=== PATIENT | male | born 1985 | race Caucasian/White ===

== ENCOUNTER 2018-10-30 17:30 | Inpatient (IN) ==
[2018-10-30] MEDS ORDERED: PANTOPRAZOLE 40 MG VIAL IV STA (17:58)
[2018-10-30] MEDS ORDERED: METOCLOPRAMIDE 10 MG/2 ML VIAL IV STA (17:58)
[2018-10-30] MEDS ORDERED: INSULIN REGULAR 100 UNIT/ML IV STA (17:58)
[2018-10-30] MEDS ORDERED: LOPERAMIDE 2 MG CAPSULE PO STA (17:58)
[2018-10-30] MEDS ORDERED: SODIUM CHLORIDE 0.9% 2,000 ML IV STA (17:58)
[2018-10-30] MEDS ORDERED: ONDANSETRON ODT 4 MG TABLET PO STA (17:58)
[2018-10-30] MEDS ORDERED: LEVOFLOXACIN INJ 750 MG in PREMIX 1 EACH IV STA (17:58)
[2018-10-30 18:22] LABS: Basophils % 0.1 % (0.0-0.8); Hemoglobin 12.7 GM/DL (14.0-18.0); Immature Granulocytes % 1.2 %; Immature Granulocytes Absolute 0.18 #; Lymphocytes # 1.3 10*3/uL (1.4-4.0); Lymphocytes % 8.2 % (21.2-54.2); Mean Corpuscular HGB Conc 33.4 GM/DL (32-36); Mean Corpuscular Hemoglobin 30 PG (27-34); Mean Corpuscular Volume 89.4 FL (87-102); Monocytes # 0.8 10*3/uL (0.11-0.8); Monocytes % 5.5 % (1.7-12.7); Neutrophils # 13.1 10*3/uL (1.4-7.4); Platelet Count 269 T/CUMM (130-400); Red Blood Count 4.25 MC/CUMM (3.8-5.5); Red Cell Distribution Width 12.8 % (9.3-17.3); White Blood Count 15.4 T/CUMM (4-12)
[2018-10-30 18:41] LABS: Lactic Acid 1.4 MMOL/L (0.4-2.0)
[2018-10-30 18:42] LABS: Albumin 2.5 G/DL (3.4-5.0); Calcium 9.2 MG/DL (8.5-10.1); Osmolality,Calculated 306.4 MOS/KG (273-304); Potassium 4.5 MMOL/L (3.5-5.1); Total Protein 6.7 G/DL (6.4-8.3)
[2018-10-30] MEDS ORDERED: SODIUM CHLORIDE 0.9% 1,000 ML IV ONE (19:43)
[2018-10-30] MEDS ORDERED: ONDANSETRON 4 MG/2 ML VIAL IV PRN (19:43)
[2018-10-30] MEDS ORDERED: SODIUM PHOSPHATE INJ 15.9 MMOL in SODIUM CHLORIDE 0.9% 250 ML IV PRN (19:43)
[2018-10-30] MEDS ORDERED: INSULIN REGULAR 100 UNIT/ML IV ONE (19:43)
[2018-10-30] MEDS ORDERED: POTASSIUM CHLORIDE RIDER 10 MEQ in PREMIX 1 EACH IV PRN (19:43)
[2018-10-30] MEDS ORDERED: SODIUM BICARB INJ 100 MEQ in STERILE WATER INJ 400 ML IV PRN (19:43)
[2018-10-30] MEDS ORDERED: MAGNESIUM SULF RIDER 2 GM in PREMIX 1 EACH IV PRN (19:43)
[2018-10-30] MEDS ORDERED: DEXTROSE 50% 25 GM/50 ML VIAL IV PRN ×2 (19:43)
[2018-10-30] MEDS ORDERED: MAGNESIUM SULF RIDER 4 GM in PREMIX 1 EACH IV PRN (19:43)
[2018-10-30] MEDS ORDERED: INSULIN REGULAR DRIP 100 ML IV SCH (20:00)
[2018-10-30 20:44] LABS: Calcium 6.4 MG/DL (8.5-10.1); Osmolality,Calculated 307.5 MOS/KG (273-304); Potassium 3.5 MMOL/L (3.5-5.1)
[2018-10-30 21:37] LABS: ABG Base Excess -7.8 MMOL/L (-2.5-2.5); ABG HCO3 18.1 MMOL/L (20-26); ABG Oxygen Saturation 98.3 % (95-100); ABG PH 7.362 (7.35-7.45); ABG TCO2 14.9 MMOL/L (23-27); Allen Test Positive; Pt O2 Delivery Device Room Air
[2018-10-30] MEDS: ENOXAPARIN 40 MG/0.4 ML SYRINGE SUBCUT SCH (21:57)
[2018-10-30] MEDS: SODIUM CHLORIDE 0.9% 1,000 ML IV SCH (22:33)
[2018-10-31 00:01] LABS: Apearance,Urine CLEAR (Clear); Bilirubin,Urine Negative (Negative); Blood, Urine Small mg/dL (Negative); Glucose,Urine (UA) >=500 mg/dL (Negative); Ketones,Urine 20 mg/dL (Negative); Mucus,Urine Occasional /LPF (Occasional); Nitrite,Urine Negative (Negative); Protein,Urine 100 MG/DL; RBC,Urine <1 /HPF (0-4); Squamous Epithelial Cell,Urine Occasional /HPF (0-10); Urine Color Straw (Yellow); Urine Specific Gravity 1.016 (1.001-1.035); Urine Urobilinogen < 2.0 EU/DL (0.2-1.0); WBC,Urine <1 /HPF (0-6)
[2018-10-31 00:07] LABS: Barbiturates Screen,Urine Negative (Negative); Benzodiazepines Screen,Urine Negative (Negative); Cannabinoid Screen,Urine Negative (Negative); Opiate Screen,Urine Negative (Negative); Phencyclidine Screen,Urine Negative (Negative)
[2018-10-31 00:26] LABS: Calcium 7.5 MG/DL (8.5-10.1); Osmolality,Calculated 303.1 MOS/KG (273-304); Potassium 4.2 MMOL/L (3.5-5.1)
[2018-10-31] MEDS: SODIUM CHLORIDE 0.9% 1,000 ML IV SCH (00:34)
[2018-10-31] MEDS ORDERED: SODIUM CHLORIDE 0.9% 1,000 ML IV SCH (00:43)
[2018-10-31 04:17] LABS: Basophils % 0.1 % (0.0-0.8); Eosinophils % 0.1 % (0.00-10.9); Hematocrit 28.7 VOL% (42.0-52.0); Hemoglobin 9.6 GM/DL (14.0-18.0); Immature Granulocytes % 0.7 %; Immature Granulocytes Absolute 0.07 #; Lymphocytes # 1.5 10*3/uL (1.4-4.0); Lymphocytes % 15.4 % (21.2-54.2); Mean Corpuscular HGB Conc 33.4 GM/DL (32-36); Mean Corpuscular Hemoglobin 29 PG (27-34); Mean Corpuscular Volume 87.5 FL (87-102); Mean Platelet Volume 11.9 FL (9.6-12.0); Monocytes # 0.7 10*3/uL (0.11-0.8); Monocytes % 7.5 % (1.7-12.7); Neutrophils # 7.4 10*3/uL (1.4-7.4); Neutrophils % 76.2 % (38.7-73.9); Platelet Count 189 T/CUMM (130-400); Red Blood Count 3.28 MC/CUMM (3.8-5.5); Red Cell Distribution Width 12.8 % (9.3-17.3); White Blood Count 9.8 T/CUMM (4-12)
[2018-10-31 04:34] LABS: Calcium 7.3 MG/DL (8.5-10.1); Osmolality,Calculated 302.4 MOS/KG (273-304); Potassium 3.9 MMOL/L (3.5-5.1)
[2018-10-31] MEDS: DEXTROSE 5% NACL 0.9% 1,000 ML IV SCH ×2 (04:35→09:47)
[2018-10-31 04:50] LABS: ABG Oxygen Saturation 96.7 % (95-100); ABG PCO2 37.5 MM HG (35-48); ABG PH 7.442 (7.35-7.45); ABG PO2 93.7 MM HG (80-95); ABG TCO2 26.2 MMOL/L (23-27); Allen Test Positive; Pt O2 Delivery Device Room Air
[2018-10-31] MEDS: SODIUM CHLOR 0.45% KCL 20 MEQ 20 MEQ/1,000 ML BAG IV SCH ×2 (06:35→10:39)
[2018-10-31] MEDS ORDERED: GLUCAGON 1 MG VIAL IM PRN (08:45)
[2018-10-31] MEDS ORDERED: DEXTROSE 50% 25 GM/50 ML VIAL IV PRN (08:45)
[2018-10-31 09:02] LABS: Calcium 7.5 MG/DL (8.5-10.1); Osmolality,Calculated 297.4 MOS/KG (273-304); Potassium 3.8 MMOL/L (3.5-5.1)
[2018-10-31] MEDS ORDERED: POTASSIUM PHOSPHATE 30 MMOL in SODIUM CHLORIDE 0.9% 250 ML IV ONE (10:00)
[2018-10-31] MEDS: INSULIN GLARGINE 100 UNIT/ML SUBCUT SCH (10:16)
[2018-10-31] MEDS: METOPROLOL TARTRATE 25 MG TABLET PO SCH ×2 (10:17→21:58)
[2018-10-31] MEDS: FAMOTIDINE 20 MG TABLET PO SCH ×2 (10:35→21:57)
[2018-10-31] MEDS: INSULIN REGULAR 100 UNIT/ML SUBCUT SCH ×3 (13:30→21:58)
[2018-10-31] MEDS: SODIUM CHLORIDE 0.45% 1,000 ML IV SCH (13:33)
[2018-10-31 14:32] LABS: Osmolality,Calculated 287.5 MOS/KG (273-304); Potassium 4.1 MMOL/L (3.5-5.1)
[2018-10-31] MEDS: GABAPENTIN 300 MG CAPSULE PO SCH ×2 (16:17→21:57)
[2018-10-31 18:46] LABS: Calcium 7.2 MG/DL (8.5-10.1); Osmolality,Calculated 286.5 MOS/KG (273-304); Potassium 3.8 MMOL/L (3.5-5.1)
[2018-10-31] MEDS: ENOXAPARIN 40 MG/0.4 ML SYRINGE SUBCUT SCH (21:57)
[2018-11-01] MEDS: SODIUM CHLORIDE 0.45% 1,000 ML IV SCH ×3 (02:15→11:34)
[2018-11-01 07:19] LABS: Basophils % 0.2 % (0.0-0.8); Eosinophils % 0.6 % (0.00-10.9); Hematocrit 28.1 VOL% (42.0-52.0); Hemoglobin 9.3 GM/DL (14.0-18.0); Immature Granulocytes % 0.3 %; Immature Granulocytes Absolute 0.02 #; Lymphocytes # 1.4 10*3/uL (1.4-4.0); Lymphocytes % 21.1 % (21.2-54.2); Mean Corpuscular HGB Conc 33.1 GM/DL (32-36); Mean Corpuscular Hemoglobin 30 PG (27-34); Mean Corpuscular Volume 90.1 FL (87-102); Mean Platelet Volume 11.3 FL (9.6-12.0); Monocytes # 0.6 10*3/uL (0.11-0.8); Monocytes % 8.6 % (1.7-12.7); Neutrophils # 4.6 10*3/uL (1.4-7.4); Neutrophils % 69.2 % (38.7-73.9); Platelet Count 129 T/CUMM (130-400); Red Blood Count 3.12 MC/CUMM (3.8-5.5); Red Cell Distribution Width 13.2 % (9.3-17.3); White Blood Count 6.7 T/CUMM (4-12)
[2018-11-01] MEDS: INSULIN REGULAR 100 UNIT/ML SUBCUT SCH ×2 (08:28→11:43)
[2018-11-01] MEDS ORDERED: LEVOFLOXACIN INJ 750 MG in PREMIX 1 EACH IV SCH (09:00)
[2018-11-01] MEDS: INSULIN GLARGINE 100 UNIT/ML SUBCUT SCH (09:46)
[2018-11-01] MEDS: GABAPENTIN 300 MG CAPSULE PO SCH (09:46)
[2018-11-01] MEDS: METOPROLOL TARTRATE 25 MG TABLET PO SCH (09:46)
[2018-11-01] MEDS: FAMOTIDINE 20 MG TABLET PO SCH (09:46)
[2018-11-01 11:43] VITALS: BP 123/82
== END 2018-11-01 14:20 | disposition home or self-care (01) | DRG 638 ==
LOC: N.ED 17:30 → SUATTDRO 19:43 → N.CC 19:43 → N.5E 10-31 15:55
PROVIDERS: ADMIT Internal Medicine; ATTEND Internal Medicine Cardiovascular Disease

== ENCOUNTER 2022-01-13 08:04 | Observation (INO) ==
[2022-01-13 09:31] LABS: Basophils % 0.5 % (0.0-0.8); Eosinophils # 0.1 10*3/uL (0.0-0.87); Eosinophils % 1.5 % (0.00-10.9); Hematocrit 32.3 VOL% (42.0-52.0); Hemoglobin 10.3 GM/DL (14.0-18.0); Immature Granulocytes % 0.5 %; Immature Granulocytes Absolute 0.03 #; Lymphocytes # 0.9 10*3/uL (1.4-4.0); Lymphocytes % 13.7 % (21.2-54.2); Mean Corpuscular HGB Conc 31.9 GM/DL (32-36); Mean Corpuscular Volume 100.3 FL (87-102); Mean Platelet Volume 10.1 FL (9.6-12.0); Monocytes % 7.5 % (1.7-12.7); Neutrophils % 76.3 % (38.7-73.9); Platelet Count 173 T/CUMM (130-400); Red Blood Count 3.22 MC/CUMM (3.8-5.5); Red Cell Distribution Width 13.9 % (9.3-17.3); White Blood Count 6.5 T/CUMM (4-12)
[2022-01-13 09:50] LABS: Osmolality,Calculated 282.4 MOS/KG (273-304)
[2022-01-13 09:55] LABS: Potassium 6.3 MMOL/L (3.5-5.1)
[2022-01-13] MEDS ORDERED: SODIUM POLYSTYRENE SULFATE 15 GM/60 ML BOTTLE PO STA (10:18)
[2022-01-13] MEDS ORDERED: levETIRAcetam 500 MG TABLET PO STA (10:22)
[2022-01-13] MEDS ORDERED: cefTRIAXone 1,000 MG in SODIUM CHLORIDE 0.9% 100 ML IV ONE (11:39)
[2022-01-13] MEDS ORDERED: LIDOCAINE 2% 5 ML VIAL ONE (13:58)
[2022-01-13] MEDS ORDERED: ONDANSETRON 4 MG/2 ML VIAL ONE (13:58)
[2022-01-13] MEDS ORDERED: propofoL 200 MG/20 ML VIAL IV ONE (13:58)
[2022-01-13] MEDS ORDERED: LIDOCAINE 1%/EPI INJ 20 ML VIAL ONE (14:45)
[2022-01-13] MEDS ORDERED: HEPARIN 5,000 UNIT/1 ML VIAL ONE (14:45)
[2022-01-13] MEDS ORDERED: BUPIVACAINE MPF 0.25% 30 ML VIAL ONE (14:45)
[2022-01-13] MEDS ORDERED: SEVOFLURANE 1 UNIT/15 MINUTE INH ONE (15:47)
[2022-01-13] MEDS: levETIRAcetam 250 MG TABLET PO SCH (23:06)
[2022-01-13] MEDS: GABAPENTIN 600 MG TABLET PO SCH (23:06)
[2022-01-14] MEDS: GABAPENTIN 600 MG TABLET PO SCH (09:11)
[2022-01-14] MEDS: levETIRAcetam 250 MG TABLET PO SCH (09:11)
[2022-01-14 12:38] VITALS: BP 160/93
== END 2022-01-14 14:15 | disposition home or self-care (01) ==
LOC: EDUNIT# → EDBD → N.ED 08:04 → N.EDINP 08:04 → N.3E 11:14
PROVIDERS: ADMIT Surgery; ATTEND Surgery

== ENCOUNTER 2022-02-17 06:47 | Observation (INO) ==
[2022-02-17 07:43] LABS: Basophils % 0.9 % (0.0-0.8); Eosinophils # 0.2 10*3/uL (0.0-0.87); Eosinophils % 3.4 % (0.00-10.9); Hemoglobin 12.6 GM/DL (14.0-18.0); Immature Granulocytes % 0.5 %; Immature Granulocytes Absolute 0.02 #; Lymphocytes # 1.2 10*3/uL (1.4-4.0); Lymphocytes % 26.4 % (21.2-54.2); Mean Corpuscular HGB Conc 32.3 GM/DL (32-36); Mean Corpuscular Volume 101.6 FL (87-102); Mean Platelet Volume 11.3 FL (9.6-12.0); Monocytes # 0.5 10*3/uL (0.11-0.8); Monocytes % 11.1 % (1.7-12.7); Neutrophils % 57.7 % (38.7-73.9); Platelet Count 127 T/CUMM (130-400); Red Blood Count 3.84 MC/CUMM (3.8-5.5); Red Cell Distribution Width 16.3 % (9.3-17.3); White Blood Count 4.4 T/CUMM (4-12)
[2022-02-17 07:54] LABS: Calcium 8.6 MG/DL (8.5-10.1); Osmolality,Calculated 292.7 MOS/KG (273-304); Potassium 4.4 MMOL/L (3.5-5.1)
[2022-02-17] MEDS ORDERED: ONDANSETRON 4 MG/2 ML VIAL IV PRN (09:48)
[2022-02-17] MEDS ORDERED: DEXTROSE 10% 250 ML BAG IV PRN (09:48)
[2022-02-17] MEDS ORDERED: DOCUSATE SODIUM 100 MG CAPSULE PO PRN (09:48)
[2022-02-17] MEDS ORDERED: GLUCAGON 1 MG VIAL IM PRN (09:48)
[2022-02-17] MEDS ORDERED: ACETAMINOPHEN 325 MG TABLET PO PRN (09:48)
[2022-02-17] MEDS ORDERED: hydrALAZINE 20 MG/1 ML VIAL IV PRN (10:24)
[2022-02-17] MEDS ORDERED: METOCLOPRAMIDE 10 MG/2 ML VIAL ONE (11:52)
[2022-02-17] MEDS ORDERED: propofoL 200 MG/20 ML VIAL IV ONE (12:05)
[2022-02-17] MEDS ORDERED: DEXMEDETOMIDINE 200 MCG/2 ML VIAL ONE (12:05)
[2022-02-17] MEDS ORDERED: HEPARIN 5,000 UNIT/1 ML VIAL ONE (12:10)
[2022-02-17] MEDS ORDERED: BUPIVACAINE MPF 0.25% 30 ML VIAL ONE (12:10)
[2022-02-17] MEDS ORDERED: LIDOCAINE 1%/EPI INJ 20 ML VIAL ONE (12:10)
[2022-02-17] MEDS ORDERED: hydrALAZINE 20 MG/1 ML VIAL ONE (12:22)
[2022-02-17] MEDS ORDERED: SODIUM CHLORIDE 0.9% 250 ML IV ONE (12:25)
[2022-02-17] MEDS: INSULIN REGULAR 100 UNIT/ML SUBCUT SCH ×4 (14:34→20:30)
[2022-02-17] MEDS: GABAPENTIN 300 MG CAPSULE PO SCH ×2 (16:08→20:20)
[2022-02-17] MEDS ORDERED: HEPARIN 10,000 UNIT/10 ML VIAL IV ONE (16:30)
[2022-02-17] MEDS: levETIRAcetam 250 MG TABLET PO SCH (20:20)
[2022-02-17] MEDS ORDERED: INSULIN GLARGINE 100 UNIT/ML SUBCUT SCH (21:00)
[2022-02-17] MEDS ORDERED: LABETALOL 20 MG/4 ML SYRINGE IV ONE (22:07)
[2022-02-18 03:56] LABS: Basophils % 0.8 % (0.0-0.8); Eosinophils # 0.1 10*3/uL (0.0-0.87); Eosinophils % 2.2 % (0.00-10.9); Hemoglobin 12.3 GM/DL (14.0-18.0); Immature Granulocytes % 0.4 %; Immature Granulocytes Absolute 0.02 #; Lymphocytes # 1.2 10*3/uL (1.4-4.0); Lymphocytes % 23.3 % (21.2-54.2); Mean Corpuscular HGB Conc 33.2 GM/DL (32-36); Mean Corpuscular Volume 99.7 FL (87-102); Mean Platelet Volume 12.1 FL (9.6-12.0); Monocytes # 0.5 10*3/uL (0.11-0.8); Neutrophils % 63.3 % (38.7-73.9); Platelet Count 121 T/CUMM (130-400); Red Blood Count 3.71 MC/CUMM (3.8-5.5); Red Cell Distribution Width 15.9 % (9.3-17.3); White Blood Count 5.1 T/CUMM (4-12)
[2022-02-18 04:16] LABS: Albumin 3.5 G/DL (3.4-5.0); Bilirubin,Total 0.6 MG/DL (0.20-1.00); Calcium 8.2 MG/DL (8.5-10.1); Osmolality,Calculated 278.8 MOS/KG (273-304); Potassium 4.1 MMOL/L (3.5-5.1); Total Protein 6.9 G/DL (6.4-8.2)
[2022-02-18] MEDS: INSULIN REGULAR 100 UNIT/ML SUBCUT SCH ×2 (07:11→11:26)
[2022-02-18] MEDS ORDERED: PANTOPRAZOLE 40 MG TABLET PO SCH (09:00)
[2022-02-18] MEDS ORDERED: ASPIRIN EC 81 MG TABLET PO SCH (09:00)
[2022-02-18] MEDS: levETIRAcetam 250 MG TABLET PO SCH (09:08)
[2022-02-18] MEDS: GABAPENTIN 300 MG CAPSULE PO SCH (09:08)
[2022-02-18 13:12] VITALS: BP 122/78
== END 2022-02-18 14:39 | disposition home or self-care (01) ==
LOC: N.EDINP 06:47 → N.ED 06:47 → N.CC 14:26
PROVIDERS: ADMIT Family Medicine; ATTEND Family Medicine